=== PATIENT | male | born 1960 | race Caucasian/White ===

== ENCOUNTER → 2017-01-02 | Outpatient (CLI) | payer BC ==
[~2017-01-02] MED LIST: AZIT250T PO; FEXO1TAB49 PO; FLUT0.15 NAE; HYDR-3714 PO; PRT/20 PO; TAMS0.4C38 PO
--- NOTE | 2017-01-02 17:52 | DIAGNOSTIC IMAGING REPORT ---
Venous Doppler left leg VENOUS DOPP LOWER EXT UNILAT CLINICAL HISTORY: M79.606 pain. Edema. TECHNIQUE: Venous Doppler COMPARISON STUDY: None FINDINGS: Normal study IMPRESSION: Normal study Electronically signed by: Jefferson Hayes M.D. 01/02/2017 5:50 PM Dictated Date/Time: 01/02/2017 5:49 PM
== END | disposition home or self-care (01) ==
LOC: C.ULTR 17:14
PROVIDERS: ATTEND Nurse Practitioner Family
DX: M79.605 Pain in left leg (principal)

== ENCOUNTER 2017-06-30 20:39 | Emergency (ER) | payer BC ==
[~2017-06-30] VITALS: Ht 180.3 cm; Wt 90.7 kg
[~2017-06-30 20:39] MED LIST changes: -FEXO1TAB49 PO; -FLUT0.15 NAE; -PRT/20 PO; -TAMS0.4C38 PO
[2017-06-30 20:43] VITALS: TEMP 36.9; Ht 180.3 cm; Wt 90.7 kg
[2017-06-30] MEDS ORDERED: ONDANSETRON INJ 2 MG/ML 2 ML VIAL IV STA (21:10)
[2017-06-30] MEDS ORDERED: TAMS0.4C38 PO (21:13)
[2017-06-30] MEDS ORDERED: FLUT0.15 NAE (21:13)
[2017-06-30] MEDS ORDERED: FEXO1TAB49 PO (21:13)
[2017-06-30 21:27] LABS: BASO % 0.3 %; BASO ABS # 0.02 K/uL (0-0.2); COMPLETE YES; EOS % 2.5 %; HEMATOCRIT 41.1 % (42-52); IG% 0.2 %; LYMPH % 21.7 %; LYMPH ABS # 1.37 K/uL (1.2-3.4); MEAN CELL VOLUME 84.7 fL (80-100); MEAN CORPUSCULAR HEMOGLOBIN 29.9 pg (25-34); MEAN CORPUSCULAR HGB CONC 35.3 g/dl (32-36); MEAN PLATELET VOLUME 9.7 fL (7.4-10.4); MONO % 8.4 %; NEUT % 66.9 %; PLATELET COUNT 151 K/uL (130-400); RED BLOOD COUNT 4.85 M/uL (4.7-6.1); WHITE BLOOD COUNT 6.32 K/uL (4.8-10.8)
[2017-06-30 21:32] VITALS: O2SAT 96
[2017-06-30 21:38] LABS: PROTHROMBIN TIME (PATIENT) 10.4 SECONDS (9.0-12.0)
[2017-06-30 21:44] LABS: BUN/CREATININE RATIO 10.9 (10-20); CALCIUM 9.1 mg/dl (8.5-10.1); CREATININE 1.4 mg/dl (0.60-1.40); POTASSIUM 3.4 mmol/L (3.5-5.1)
--- NOTE | 2017-06-30 21:46 | DIAGNOSTIC IMAGING REPORT ---
CHEST ONE VIEW PORTABLE CLINICAL HISTORY: 56 years-old Male presenting with cp. TECHNIQUE: Portable upright AP view of the chest was obtained. COMPARISON: 07/25/2009. FINDINGS: Cardiomediastinal silhouette normal. Lungs and pleural spaces clear. Osseous structures normal. Upper abdomen normal. IMPRESSION: 1. No acute cardiopulmonary disease. Electronically signed by: Reese Lopez M.D. 06/30/2017 9:44 PM Dictated Date/Time: 06/30/2017 9:44 PM
[2017-06-30] MEDS ORDERED: PANTOprazole SOD 40 MG TAB PO STA (23:25)
[2017-06-30] MEDS ORDERED: PRT/20 PO (23:27)
[2017-06-30 23:44] VITALS: BP 153/84; PULSE 64; O2SAT 97
--- NOTE | 2017-07-01 00:09 | EMERGENCY ROOM VISIT NOTE ---
History Report prepared by Irma: Ange Purvis Under the Supervision of: Dr. Kiko Leger M.D. First contact with patient: 21:04 Chief Complaint: CHEST PAIN Stated Complaint: FOOD STUCK IN THROAT,RT SIDED CHEST PAIN History of Present Illness The patient is a 56 year old male who presents to the Emergency Room with complaints of persistent chest pain starting 2.5 hours ago. The pain started while he was eating his turkey dinner. The pain is in the left side of his chest. It does not radiate to his arm or neck. He vomited which relieved some of his pain. He has noticed that belching and vomiting improve the pain. He also took some Tums. He can currently feel the chest pain building up again. He describes it as a pressure. He has some SOB. He states that it is hard to take a deep breath. He is having difficulty swallowing. He denies any nausea, leg swelling or pain, or diaphoresis. He denies any history of heart disease or high cholesterol. He denies any medical problems. He does not smoke. He denies any family history of heart disease. He does have a family history of esophageal problems. Source of History: patient Onset: 2.5 hours ago Position: chest (left) Quality: pressure Timing: other (persistent) Modifying Factors (Relieving): other (vomiting, belching) Associated Symptoms: + SOB, No diaphoresis, No cough, No neck pain, No nausea Note: Pt reports difficulty swallowing. Pt denies arm pain, leg swelling/pain. Review of Systems See HPI for pertinent positives & negatives. A total of 10 systems reviewed and were otherwise negative. Past Medical & Surgical Medical Problems: (1) No significant past medical history Family History Family history of esophageal problems. Social History Smoking Status: Never Smoker Marital Status: Occupation Status: employed Current/Historical Medications Scheduled Fexofenadine Hcl (Irina Allergy), 180 MG PO DAILY Pantoprazole (Protonix), 20 MG PO DAILY Tamsulosin Hcl (Flomax), 0.4 MG PO HS Scheduled PRN Fluticasone Propionate (Nasal) (Flonase Allergy Relief), 2 SPRAYS LILIANA DAILY PRN for Allergy Symptoms Allergies Coded Allergies: Sulfa Drugs (Verified Allergy, Unknown, REDNESS, 09/04/15) Physical Exam Vital Signs Date Time Temp Pulse Resp B/P (MAP) Pulse Ox O2 Delivery O2 Flow Rate FiO2 10/6/17 23:44 64 16 153/84 97 06/30/17 23:01 61 18 124/79 97 Room Air 06/30/17 21:32 96 Room Air 06/30/17 21:16 77 06/30/17 21:08 99 Room Air 06/30/17 20:43 36.9 72 18 161/81 97 Room Air Physical Exam Constitutional: Vital signs reviewed. Vomiting in the room. Eyes: Pupils are equal round reactive to light. Conjunctiva are noninjected. ENT: Pharynx is clear without erythema or exudate. Mucous membranes are moist. Neck supple without meningeal signs. Respiratory: Clear to auscultation bilaterally. Breath sounds are equal bilaterally. Cardiovascular: Regular rate and rhythm. No rubs or gallops. GI: Soft, nondistended and nontender. Bowel sounds are present. Musculoskeletal: No peripheral edema. No lower extremity tenderness. Integumentary: No cyanosis. Neurological: The patient is awake and alert. No focal deficits. Psychiatric: Anxious. Medical Decision & Procedures ER Provider Diagnostic Interpretation: X-ray results as stated below per interpretation by me and the radiologist: CHEST ONE VIEW PORTABLE CLINICAL HISTORY: 56 years-old Male presenting with cp. TECHNIQUE: Portable upright AP view of the chest was obtained. COMPARISON: 07/25/2009. FINDINGS: Cardiomediastinal silhouette normal. Lungs and pleural spaces clear. Osseous structures normal. Upper abdomen normal. IMPRESSION: 1. No acute cardiopulmonary disease. Electronically signed by: Reese Lopez M.D. 06/30/2017 9:44 PM Dictated Date/Time: 06/30/2017 9:44 PM Laboratory Results 06/30/17 21:00 Red Blood Count 4.85, Mean Corpuscular Volume 84.7, Mean Corpuscular Hemoglobin 29.9, Mean Corpuscular Hemoglobin Concent 35.3, Mean Platelet Volume 9.7, Neutrophils (%) (Auto) 66.9, Lymphocytes (%) (Auto) 21.7, Monocytes (%) (Auto) 8.4, Eosinophils (%) (Auto) 2.5, Basophils (%) (Auto) 0.3, Neutrophils # (Auto) 4.23, Lymphocytes # (Auto) 1.37, Monocytes # (Auto) 0.53, Eosinophils # (Auto) 0.16, Basophils # (Auto) 0.02 06/30/17 21:00 Test 06/30/17 21:00 06/30/17 23:04 White Blood Count 6.32 K/uL (4.8-10.8) Red Blood Count 4.85 M/uL (4.7-6.1) Hemoglobin 14.5 g/dL (14.0-18.0) Hematocrit 41.1 % (42-52) Mean Corpuscular Volume 84.7 fL (80-100) Mean Corpuscular Hemoglobin 29.9 pg (25-34) Mean Corpuscular Hemoglobin Concent 35.3 g/dl (32-36) Platelet Count 151 K/uL (130-400) Mean Platelet Volume 9.7 fL (7.4-10.4) Neutrophils (%) (Auto) 66.9 % Lymphocytes (%) (Auto) 21.7 % Monocytes (%) (Auto) 8.4 % Eosinophils (%) (Auto) 2.5 % Basophils (%) (Auto) 0.3 % Neutrophils # (Auto) 4.23 K/uL (1.4-6.5) Lymphocytes # (Auto) 1.37 K/uL (1.2-3.4) Monocytes # (Auto) 0.53 K/uL (0.11-0.59) Eosinophils # (Auto) 0.16 K/uL (0-0.5) Basophils # (Auto) 0.02 K/uL (0-0.2) RDW Standard Deviation 38.0 fL (36.4-46.3) RDW Coefficient of Variation 12.5 % (11.5-14.5) Immature Granulocyte % (Auto) 0.2 % Immature Granulocyte # (Auto) 0.01 K/uL (0.00-0.02) Prothrombin Time 10.4 SECONDS (9.0-12.0) Prothromb Time International Ratio 1.0 (0.9-1.1) Activated Partial Thromboplast Time 26.1 SECONDS (21.0-31.0) Partial Thromboplastin Ratio 1.0 Anion Gap 5.0 mmol/L (3-11) Est Creatinine Clear Calc Drug Dose 67.1 ml/min Estimated GFR () 64.2 Estimated GFR (Non- 55.4 BUN/Creatinine Ratio 10.9 (10-20) Calcium Level 9.1 mg/dl (8.5-10.1) Bedside Troponin I < 0.030 ng/ml (0-0.045) Laboratory results as reviewed by me. Medications Administered Medications (Trade) Dose Ordered Sig/Riccardo Route Start Time Stop Time Status Last Admin Dose Admin Ondansetron HCl (Zofran Inj) 4 mg NOW STAT IV 06/30/17 21:10 06/30/17 21:12 DC 06/30/17 21:29 4 MG Pantoprazole Sodium (Protonix Tab) 40 mg NOW STAT PO 06/30/17 23:25 06/30/17 23:26 DC 06/30/17 23:25 40 MG ECG Indication: chest pain Rate (beats per minute): 64 Rhythm: sinus rhythm Findings: T-wave inversion (lead 1 and aVL), no ectopy, other (biphasic T wave in V6) Comparison ECG Date: 08-May-2013 Change: Similar T wave abnormalities. Repeat EKG shows NSR, rate 72, persistent T wave changes that are unchanged. ED Course 2104: The patient was evaluated in room B3B. A complete history and physical exam was performed. 2109: Zofran Inj 4 mg IV. 2204: I reevaluated the patient. He vomited some turkey and is feeling a lot better now even before the Zofran. He is able to drink fluids and has no chest discomfort. He will have a repeat troponin and be discharged home if it is negative. I told him to stay on a soft diet and follow up with GI. 2324: Protonix Tab 40 mg PO. 2326: I reevaluated the patient. He is having no symptoms. I discussed the results including the 2nd troponin which was negative and EKG finding. He verbalized agreement of the treatment plan. He was discharged home. Medical Decision This is a 56-year-old male who presents with chest pain and vomiting. Differential diagnosis includes food bolus impaction, esophageal stricture, Schatzki's ring, ID, esophageal rupture. I did perform a limited focused review of portions of the patient's old chart on the electronic medical record. The patient has had no recent pertinent visits to this hospital. I did evaluate the patient as noted above. The patient is presenting with chest pain after eating turkey. He states is better when he vomits and burps. He does have a family history of esophageal problems. He is currently vomiting. IV access was established. The patient was placed on a continuous campus monitor. I did order and personally review the patient's 12-lead EKG and chest x-ray as described above. His 12-lead EKG demonstrates T-wave inversions as described above. These, however, are unchanged from 2013. I did repeat another twelve-lead EKG which showed similar findings and no dynamic changes. His chest x-ray is unremarkable. I did order and review the patient' s blood work as noted in the electronic medical record. Troponin 2 is negative. I did treat him with Zofran IV. On reassessment the patient is feeling much better. He is able to drink water without any difficulty and his chest pain is completely resolved. I did recommend he follow closely with his doctor for further evaluation and outpatient EGD. He was advised to stay on a liquid or pured diet until cleared by his doctor. He was treated with Protonix and discharged home with a prescription for Protonix. Medication Reconcilliation Current Medication List: was personally reviewed by me Blood Pressure Screening Patient's blood pressure: Elevated blood pressure Blood pressure disposition: Referred to PCP Impression Primary Impression: Left sided chest pain Additional Impression: Dysphagia Scribe Attestation The scribe's documentation has been prepared under my direct and personally reviewed by me in its entirety. I confirm that the note above accurately reflects all work, treatment, procedures, and medical decision making performed by me. Departure Information Dispostion Home / Self-Care Prescriptions Pantoprazole (Protonix) 20 Mg Tab 20 MG PO DAILY, #30 TAB Prov: Kiko Leger M.D. 06/30/17 Referrals Juan A Capone MD (PCP) Forms Call Back Authorization, HOME CARE DOCUMENTATION FORM, IMPORTANT VISIT INFORMATION Patient Instructions ED Chest Pain Atypical Unkn Cause, My [facility] Additional Instructions You have been examined and treated today on an emergency basis only. This is not a substitute for, or an effort to provide, complete comprehensive medical care. It is impossible to recognize and treat all injuries or illnesses in a single emergency department visit. It is therefore important that you follow up closely with your physician. Call as soon as possible for an appointment. Return for worsening symptoms or if you develop fever, vomiting, black or tarry stools or any other concerning symptoms. Stay on a liquid or pured diet until cleared by your doctor. Problem Qualifiers Additional Impression: Dysphagia Dysphagia type: esophageal phase Qualified Codes: R13.10 - Dysphagia, unspecified
== END 2017-06-30 23:46 | disposition home or self-care (01) ==
LOC: C.EDB 20:40
DX: R07.9 Chest pain, unspecified (principal); R13.10 Dysphagia, unspecified; Z79.899 Other long term (current) drug therapy